=== PATIENT | male | born 1955 | race African-American/Black ===

== ENCOUNTER 2019-01-31 14:52 | Emergency (ER) | payer MEDICAID ==
[~2019-01-31] VITALS: Ht 175.3 cm; Wt 74.0 kg
[2019-01-31] MEDS ORDERED: DOCUSATE SODIUM 100MG CAPSULE PO ONE (17:00)
[2019-01-31 18:07] VITALS: BP 122/73
== END 2019-01-31 18:07 | disposition home or self-care (01) ==
LOC: ER 14:52
DX: H61.23 Impacted cerumen, bilateral (principal)
CPT/HCPCS: 99283